=== PATIENT | female | born 1945 | race Caucasian/White ===

== ENCOUNTER → 2022-04-30 | Day surgery (SDC) | payer MEDICARE, OTHER ==
[~2022-04-30] MED LIST: Acetaminophen/Codeine 30-300mg Tablet PO PRN; Adenosine 6 MG/2 ML VIAL ONE; Fentanyl 100 MCG/2 ML VIAL ONE; Heparin 10,000 UNITS/ 10 ML VIAL ONE; Iopamidol 300 61% 100 ML VIAL FS ONE; Lidocaine 1% 20 ML MDV ONE; Metoprolol Tartrate 5 MG/5 ML VIAL ONE; Midazolam HCl 2 mg/2 ml Vial ONE; Nitroglycerin 0.4 MG TAB (25 Tab Bottle) SL PRN; Nitroglycerin 50 MG/250 ML BOT 250 ML ONE; Sodium Chloride 0.9% 200 ML IV PRN; Verapamil 5 MG/2 ML VIAL ONE
[2022-04-30 06:43] VITALS: BP 138/65; TEMP 97.2
== END ==
LOC: CSHCCL 05:53
PROVIDERS: ATTEND Specialist
PROC: 4A023N7 Measurement of Cardiac Sampling and Pressure, Left Heart, Percutaneous Approach (ICD-10-PCS; principal; 2022-04-30)
PROC: B201YZZ Plain Radiography of Multiple Coronary Arteries using Other Contrast (ICD-10-PCS; 2022-04-30)
PROC: B205YZZ Plain Radiography of Left Heart using Other Contrast (ICD-10-PCS; 2022-04-30)
DX: I25.118 Atherosclerotic heart disease of native coronary artery with other forms of angina pectoris (principal); I10 Essential (primary) hypertension; E78.2 Mixed hyperlipidemia; E11.9 Type 2 diabetes mellitus without complications; F17.210 Nicotine dependence, cigarettes, uncomplicated; Z79.82 Long term (current) use of aspirin; Z79.84 Long term (current) use of oral hypoglycemic drugs; Z79.899 Other long term (current) drug therapy
CPT/HCPCS: 93458; 99152; 99153; C1760; C1769; C1894; J0153; J1644; J2250; J3010; Q9967